=== PATIENT | male | born 1970 | race Caucasian/White ===

== ENCOUNTER 2019-06-07 13:14 | Observation (INO) ==
[2019-06-07] MEDS ORDERED: Ondansetron 4 MG/2 ML VIAL IVP PRN (16:11)
[2019-06-07] MEDS ORDERED: Nitroglycerin 0.4 MG TAB.SUBL SL PRN (16:11)
[2019-06-07] MEDS ORDERED: Ipratropium/Albuterol Neb 3 ML IH PRN (16:15)
[2019-06-07] MEDS ORDERED: *HR* Heparin 5,000 UNIT/ML VIAL IVP ONE (16:29)
[2019-06-07] MEDS ORDERED: *HR* Heparin 5,000 UNIT/ML VIAL IVP PRN ×2 (16:29)
[2019-06-07 16:46] LABS: Hematocrit 45.3 % (37.5-50.1); Hemoglobin 15.8 g/dL (12.9-16.9); Mean Corpuscular HGB Conc 34.9 g/dL (31.6-35.5); Mean Corpuscular Hemoglobin 33.5 pg (28.0-33.3); Mean Platelet Volume 9.9 fL (9.4-12.4); Platelet Count 212 K/mcL (140-400); Red Blood Count 4.72 M/mcL (4.19-5.50); Red Cell Distribution Width 12.9 % (11.5-14.5); White Blood Count 8.2 K/mcL (4.3-11.1)
[2019-06-07 16:50] LABS: Heparin anti-factor XA UFH 0.35 IU/mL (0.30-0.70); INR 0.9; Prothrombin Time 10.3 Seconds (9.4-12.1)
[2019-06-07] MEDS: Heparin 25,000 UNIT/250 ML D5W 25,000 UNIT/250 ML IV.SOLN IVC SCH (17:31)
[2019-06-07 18:05] LABS: Amphetamine Screen,Urine Negative ng/mL (Cutoff=1000); Barbiturate Screen,Urine Negative ng/mL (Cutoff=200); Benzodiazepines Screen,Urine Negative ng/mL (Cutoff=200); Cannabinoid Screen,Urine Negative ng/mL (Cutoff = 50); Cocaine Screen,Urine Negative ng/mL (Cutoff= 300); Opiate Screen,Urine Negative ng/mL (Cutoff=300); Phencyclidine Screen,Urine Negative ng/mL (Cutoff=25)
[2019-06-08 04:53] LABS: Basophils % 0.3 %; Eosinophils # 0.1 K/mcL (0.0-0.6); Eosinophils % 0.5 %; Hematocrit 43.3 % (37.5-50.1); Immature Granulocytes % 0.5 % (0-4); Lymphocytes # 3.3 K/mcL (0.6-4.6); Lymphocytes % 31.7 %; Mean Corpuscular HGB Conc 34.6 g/dL (31.6-35.5); Mean Corpuscular Hemoglobin 33.2 pg (28.0-33.3); Mean Corpuscular Volume 95.8 fL (83.0-100.0); Mean Platelet Volume 9.9 fL (9.4-12.4); Monocytes # 0.6 K/mcL (0.0-1.3); Monocytes % 5.9 %; Neutrophils # 6.3 K/mcL (1.6-8.9); Platelet Count 196 K/mcL (140-400); Red Blood Count 4.52 M/mcL (4.19-5.50); Segmented Neutrophils % 61.1 %; White Blood Count 10.3 K/mcL (4.3-11.1)
[2019-06-08 04:56] LABS: INR 0.9; Prothrombin Time 10.7 Seconds (9.4-12.1)
[2019-06-08 05:14] LABS: Chol/HDL Ratio 5.1 (0-4.9)
[2019-06-08 05:17] LABS: Alanine Aminotransferase 23 Units/L (7-52); Albumin 3.7 g/dL (3.5-5.7); Albumin/Globulin Ratio 1.6 (1.1-2.2); Alkaline Phosphatase 50 Units/L (34-104); Aspartate Amino Transferase 22 Units/L (13-39); BUN/Creatinine Ratio 16 (6-26); Bilirubin,Total 0.5 mg/dL (0.3-1.0); Blood Urea Nitrogen 20 mg/dL (6-20); Calcium 8.8 mg/dL (8.6-10.3); Carbon Dioxide 25 mEq/L (23-29); Chloride 107 mEq/L (98-107); Globulin 2.3 g/dL (2.4-3.5); Glucose 114 mg/dL (70-105); Magnesium 2.1 mg/dL (1.6-2.6); Osmolality,Calculated 291 (280-300); Sodium 139 mEq/L (136-145); eGFR For African Americans > 60 (> 60); eGFR For Non-African Americans > 60 (> 60)
[2019-06-08] MEDS ORDERED: *HR* Heparin 10,000 UNIT/10 ML VIAL ONE ×2 (08:25→10:31)
[2019-06-08] MEDS ORDERED: Verapamil 5 MG/2 ML VIAL ONE (08:25)
[2019-06-08] MEDS ORDERED: Heparin 1,000 UNITS/500 mL 500 ML ONE (08:26)
[2019-06-08] MEDS ORDERED: Nitroglycerin 1,000 MCG/10 ML VIAL IV ONE ×2 (08:26→08:31)
[2019-06-08] MEDS ORDERED: ISOVUE-370 200 ML INFUS..BTL ONE ×2 (08:26→10:20)
[2019-06-08] MEDS ORDERED: 0.9 % Sodium Chloride 2,000 ML ONE (08:26)
[2019-06-08 08:46] LABS: Estimated Average Glucose 131 mg/dl
[2019-06-08] MEDS: Aspirin 81 MG TAB.CHEW PO SCH (08:54)
[2019-06-08] MEDS ORDERED: predniSONE 20 MG TABLET PO SCH (09:00)
[2019-06-08] MEDS ORDERED: Perflutren Lipid Microsphere 1.3 ML in 0.9 % Sodium Chloride 8.7 ML IVP ONE (09:16)
[2019-06-08] MEDS ORDERED: *HR* Midazolam HCl 2 MG/2 ML VIAL ONE ×2 (09:35→09:43)
[2019-06-08] MEDS ORDERED: *HR* FentaNYL (PF) 100 MCG/2 ML VIAL ONE (09:35)
[2019-06-08] MEDS ORDERED: *HR* Ticagrelor 90 MG TABLET ONE (10:10)
[2019-06-08] MEDS: Heparin 25,000 UNIT/250 ML D5W 25,000 UNIT/250 ML IV.SOLN IVC SCH (17:23)
[2019-06-08] MEDS: Nicotine 21 MG PATCH.TD24 TD SCH (17:23)
[2019-06-08] MEDS: *HR* Ticagrelor 90 MG TABLET PO SCH (20:42)
[2019-06-09 08:44] LABS: BUN/Creatinine Ratio 13 (6-26); Blood Urea Nitrogen 17 mg/dL (6-20); Calcium 8.4 mg/dL (8.6-10.3); Carbon Dioxide 27 mEq/L (23-29); Chloride 105 mEq/L (98-107); Glucose 105 mg/dL (70-105); Osmolality,Calculated 286 (280-300); Potassium 4.3 mEq/L (3.5-5.1); Sodium 137 mEq/L (136-145); eGFR For African Americans > 60 (> 60); eGFR For Non-African Americans 56 (> 60)
[2019-06-09] MEDS: *HR* Ticagrelor 90 MG TABLET PO SCH (08:59)
[2019-06-09] MEDS: Nicotine 21 MG PATCH.TD24 TD SCH (08:59)
[2019-06-09] MEDS: Aspirin 81 MG TAB.CHEW PO SCH (08:59)
[2019-06-09 11:18] VITALS: BP 138/94
[2019-06-09] MEDS ORDERED: FLU Vac QV 19-20 (6Month+)/PF 0.5 ML SYRINGE IM ONE (13:10)
== END 2019-06-09 13:48 | disposition home or self-care (01) ==
LOC: 2NENU → SUATTDRO 14:39
PROVIDERS: ADMIT Family Medicine; ATTEND Family Medicine

== ENCOUNTER 2019-07-05 14:20 | Observation (INO) ==
[2019-07-05] MEDS ORDERED: Nitroglycerin 0.4 MG TAB.SUBL SL STA (14:35)
[2019-07-05] MEDS ORDERED: Aspirin 325 MG TABLET PO ONE (14:35)
[2019-07-05 15:15] LABS: Basophils % 0.7 %; Eosinophils # 0.1 K/mcL (0.0-0.6); Eosinophils % 1.5 %; Hematocrit 44.1 % (37.5-50.1); Hemoglobin 15.9 g/dL (12.9-16.9); Immature Granulocytes % 0.5 % (0-4); Lymphocytes % 32.5 %; Mean Corpuscular HGB Conc 36.1 g/dL (31.6-35.5); Mean Corpuscular Hemoglobin 33.4 pg (28.0-33.3); Mean Corpuscular Volume 92.6 fL (83.0-100.0); Mean Platelet Volume 9.8 fL (9.4-12.4); Monocytes # 0.5 K/mcL (0.0-1.3); Monocytes % 7.5 %; Neutrophils # 3.5 K/mcL (1.6-8.9); Platelet Count 238 K/mcL (140-400); Red Blood Count 4.76 M/mcL (4.19-5.50); Red Cell Distribution Width 12.8 % (11.5-14.5); Segmented Neutrophils % 57.3 %; White Blood Count 6.2 K/mcL (4.3-11.1)
[2019-07-05 15:36] LABS: BUN/Creatinine Ratio 9 (6-26); Blood Urea Nitrogen 12 mg/dL (6-20); Calcium 9.2 mg/dL (8.6-10.3); Carbon Dioxide 25 mEq/L (23-29); Chloride 105 mEq/L (98-107); Glucose 121 mg/dL (70-105); Osmolality,Calculated 287 (280-300); Potassium 3.8 mEq/L (3.5-5.1); Sodium 138 mEq/L (136-145); eGFR For African Americans > 60 (> 60); eGFR For Non-African Americans 59 (> 60)
[2019-07-05 15:37] LABS: Troponin I < 0.03 ng/mL (< 0.04)
[2019-07-05] MEDS ORDERED: Naloxone 0.4 MG/ML INJ IVP PRN (15:55)
[2019-07-05] MEDS ORDERED: Ondansetron 4 MG/2 ML VIAL IVP PRN (15:55)
[2019-07-05] MEDS ORDERED: Ipratropium/Albuterol Neb 3 ML IH PRN (16:31)
[2019-07-05] MEDS ORDERED: Nitroglycerin 0.4 MG TAB.SUBL SL PRN (16:36)
[2019-07-05] MEDS ORDERED: Morphine Sulfate 2 MG/ML SYRINGE IVP PRN (16:39)
[2019-07-05] MEDS: Nicotine 21 MG PATCH.TD24 TD SCH (18:24)
[2019-07-05] MEDS ORDERED: GI Cocktail 40 ML EACH PO ONE (19:34)
[2019-07-05] MEDS: Budesonide/Formoterol 80/4.5 1 PUFF INH IH SCH (20:39)
[2019-07-05] MEDS: *HR* Ticagrelor 90 MG TABLET PO SCH (20:47)
[2019-07-05] MEDS: *HR* Heparin 5,000 UNIT/ML VIAL SQ SCH ×2 (20:48→21:06)
[2019-07-06 00:24] LABS: Adenovirus Not Detected (Not Detect); Bordetella Pertussis Not Detected (Not Detect); Chlamydophila pneumoniae Not Detected (Not Detect); Coronavirus 229E Not Detected (Not Detect); Coronavirus HKU1 Not Detected (Not Detect); Coronavirus NL63 Not Detected (Not Detect); Coronavirus OC43 Not Detected (Not Detect); Human Metapneumovirus Not Detected (Not Detect); Human Rhinovirus/Enterovirus Not Detected (Not Detect); Influenza A Subtype 2009 H1 Not Detected (Not Detect); Influenza B Not Detected (Not Detect); Mycoplasma pneumoniae Not Detected (Not Detect); Parainfluenza Virus 1 Not Detected (Not Detect); Parainfluenza Virus 2 Not Detected (Not Detect); Parainfluenza Virus 3 Not Detected (Not Detect); Parainfluenza Virus 4 Not Detected (Not Detect); Respiratory Syncytial Virus Not Detected (Not Detect)
[2019-07-06 04:23] LABS: Hematocrit 41.9 % (37.5-50.1); Hemoglobin 14.9 g/dL (12.9-16.9); Mean Corpuscular HGB Conc 35.6 g/dL (31.6-35.5); Mean Corpuscular Hemoglobin 33.5 pg (28.0-33.3); Mean Corpuscular Volume 94.2 fL (83.0-100.0); Mean Platelet Volume 9.8 fL (9.4-12.4); Platelet Count 222 K/mcL (140-400); Red Blood Count 4.45 M/mcL (4.19-5.50); Red Cell Distribution Width 12.9 % (11.5-14.5); White Blood Count 7.3 K/mcL (4.3-11.1)
[2019-07-06 04:47] LABS: BUN/Creatinine Ratio 13 (6-26); Blood Urea Nitrogen 16 mg/dL (6-20); Calcium 8.5 mg/dL (8.6-10.3); Carbon Dioxide 23 mEq/L (23-29); Chloride 109 mEq/L (98-107); Glucose 106 mg/dL (70-105); Osmolality,Calculated 286 (280-300); Potassium 3.9 mEq/L (3.5-5.1); Sodium 137 mEq/L (136-145); eGFR For African Americans > 60 (> 60); eGFR For Non-African Americans > 60 (> 60)
[2019-07-06] MEDS: Budesonide/Formoterol 80/4.5 1 PUFF INH IH SCH ×2 (07:26→20:09)
[2019-07-06] MEDS: Aspirin 81 MG TAB.CHEW PO SCH (07:58)
[2019-07-06] MEDS: Nicotine 21 MG PATCH.TD24 TD SCH (07:58)
[2019-07-06] MEDS: *HR* Ticagrelor 90 MG TABLET PO SCH ×2 (07:58→19:50)
[2019-07-06] MEDS: *HR* Heparin 5,000 UNIT/ML VIAL SQ SCH ×3 (16:36→22:24)
[2019-07-07] MEDS ORDERED: Regadenoson 0.4 MG/5 ML SYRINGE IVP ONE (06:30)
[2019-07-07] MEDS: *HR* Ticagrelor 90 MG TABLET PO SCH (09:00)
[2019-07-07] MEDS: Nicotine 21 MG PATCH.TD24 TD SCH (09:00)
[2019-07-07] MEDS: Aspirin 81 MG TAB.CHEW PO SCH (09:00)
[2019-07-07] MEDS: Budesonide/Formoterol 80/4.5 1 PUFF INH IH SCH (09:51)
[2019-07-07 11:22] VITALS: BP 115/72
[2019-07-07] MEDS ORDERED: Isosorbide MONOnitrate (24 HR) 30 MG TAB.ER.24H PO SCH (11:45)
[2019-07-08] MEDS ORDERED: Isosorbide MONOnitrate (24 HR) 30 MG TAB.ER.24H PO SCH (09:00)
== END 2019-07-07 14:42 | disposition home or self-care (01) ==
LOC: 3BNU 14:20 → EMEROOARM 14:20 → SUATTDRO 16:21 → 3BNU 16:28
PROVIDERS: ADMIT Pharmacist; ATTEND Internal Medicine